=== PATIENT | female | born 1970 | race Caucasian/White ===

== ENCOUNTER 2019-01-26 08:00 | Outpatient (CLI) | payer BC | END 2019-01-26 20:19 | disposition home or self-care (01) | LOC: SMA 08:00 | PROVIDERS: ATTEND Obstetrics & Gynecology | DX: Z12.31 Encounter for screening mammogram for malignant neoplasm of breast (principal) | CPT/HCPCS: 77067 ==

== ENCOUNTER 2019-10-10 09:28 | Outpatient (CLI) | payer BC | END 2019-10-10 20:35 | disposition home or self-care (01) | LOC: SMA 09:28 | PROVIDERS: ATTEND Obstetrics & Gynecology | DX: R92.8 Other abnormal and inconclusive findings on diagnostic imaging of breast (principal) | CPT/HCPCS: 77066 ==